=== PATIENT | female | born 1995 | race Hispanic/Latino ===

== ENCOUNTER 2019-09-12 16:14 | Inpatient (IN) | payer BC ==
[~2019-09-12] VITALS: Ht 147.3 cm; Wt 92.5 kg
[2019-09-12 17:09] LABS: BASOPHILS % (AUTO) 0.3 % (0.0-5.0); EOSINOPHILS % (AUTO) 0.3 % (0.0-8.0); MEAN CORPUSCULAR HEMOGLOBIN 29.3 pg (27.0-33.0); MEAN CORPUSCULAR HGB CONC 34.3 g/dL (32.0-36.0); MEAN CORPUSCULAR VOLUME 85.5 fL (79-99); MONOCYTES % (AUTO) 6.1 % (3.0-13.0); NEUTROPHILS % (AUTO) 65.3 % (40.0-77.0); NUCLEATED RED BLOOD CELLS 0.1 % (0.0-0.19); PLATELET COUNT (AUTO) 160 K/uL (130-400); RED CELL DISTRIBUTION WIDTH 13.4 % (11.0-15.5); WHITE BLOOD COUNT (AUTO) 8.5 K/uL (4.8-10.8)
[2019-09-12 17:11] LABS: APPEARANCE,URINE Clear (CLEAR); BILIRUBIN,URINE Negative (NEGATIVE); COLOR,URINE Yellow (YELLOW); GLUCOSE, URINE (UA) Negative (NEGATIVE); KETONES,URINE Negative (NEGATIVE); LEUKOCYTE ESTERASE ,URINE Negative (NEGATIVE); NITRATE,URINE Negative (NEGATIVE); OCCULT BLOOD,URINE Negative (NEGATIVE); PROTEIN,URINE POS 2+ mg/dL (NEGATIVE); UROBILINOGEN,URINE 0.2 mg/dL (0.2-1.0)
[2019-09-12 17:28] LABS: INR 0.87 (0.85-1.15); PROTHROMBIN TIME 9.2 SEC (9.6-11.6)
[2019-09-12 17:29] LABS: CREATININE 0.7 mg/dL (0.5-1.5)
[2019-09-12] MEDS: LACTATED RINGERS 1000ML 1,000 ML IV SCH (17:30)
[2019-09-12 17:32] LABS: ALBUMIN 2.7 g/dL (3.5-5.0); BILIRUBIN,TOTAL 0.2 mg/dL (0.2-1.0); TOTAL PROTEIN, SERUM 6.9 g/dL (6.0-8.3); URIC ACID 6.2 mg/dL (2.6-7.2)
[2019-09-12 18:02] LABS: BACTERIA,URINE Few /HPF (None Seen); MUCUS,URINE Rare LPF (None Seen); RBC,URINE 0-1 /HPF (0-1); SQUAMOUS EPITHELIAL CELL,UR Few /HPF (0-2); WBC,URINE 0-1 /HPF (0-1)
[2019-09-12 18:03] LABS: PARTIAL THROMBOPLASTIN TIME 27.1 SEC (26.3-35.5)
[2019-09-12] MEDS ORDERED: LACTATED RINGERS 1000ML 1,000 ML IV SCH (18:31)
[2019-09-12] MEDS ORDERED: MAGNESIUM SULFATE 1,000 ML IV PRN (18:31)
[2019-09-12] MEDS ORDERED: DINOPROSTONE 10 MG VAGINAL SUPP VG SCH (18:45)
[2019-09-12] MEDS ORDERED: CALCIUM GLUCONATE 1 GM/10 ML VIAL IV PRN (18:45)
[2019-09-12] MEDS ORDERED: MAGNESIUM 4GM PREMIX 100ML 100 ML IV PRN (18:45)
[2019-09-13] MEDS ORDERED: HYDRALAZINE HCL 20 MG/ML VIAL ONE (00:45)
[2019-09-13] MEDS ORDERED: HYDRALAZINE HCL 20 MG/ML VIAL IV ONE (00:45)
[2019-09-13] MEDS: LACTATED RINGERS 1000ML 1,000 ML IV SCH (06:20)
[2019-09-13] MEDS ORDERED: OXYTOCIN-LR 20 UNITS/1000 ML 1,000 ML IV ONE (07:43)
[2019-09-13] MEDS ORDERED: OXYTOCIN 10 USP UNITS/ML 20 UNIT in LACTATED RINGERS 1000ML 1,000 ML IV SCH (07:45)
[2019-09-13] MEDS ORDERED: CEFAZOLIN SODIUM 1 GM VIAL ONE (09:21)
[2019-09-13] MEDS ORDERED: CALDOLOR 800MG+NS 250ML 250 ML IV ONE (09:21)
[2019-09-13] MEDS ORDERED: ONDANSETRON HCL 4 MG/2 ML VIAL ONE ×2 (09:26→12:54)
[2019-09-13] MEDS ORDERED: OXYTOCIN 10 USP UNITS/ML ONE (09:27)
[2019-09-13] MEDS ORDERED: DURAMORPH PF1 MG/ML 10ML AMP IV ONE (09:27)
[2019-09-13] MEDS ORDERED: FENTANYL CITRATE PF 50 MCG/1 ML 2ML VIAL ONE (09:27)
[2019-09-13] MEDS ORDERED: LACTATED RINGERS 1000ML 1,000 ML IV SCH ×2 (09:30→17:41)
[2019-09-13] MEDS ORDERED: CALDOLOR 800MG+NS 250ML 250 ML IV PRN (09:30)
[2019-09-13] MEDS ORDERED: CEFAZOLIN SODIUM 1 GM VIAL IVP PRN (09:30)
[2019-09-13] MEDS ORDERED: CEFAZOLIN SODIUM 1 GM VIAL IVP ONE (09:50)
[2019-09-13] MEDS ORDERED: PHENYLEPHRINE HCL 10 MG/ML 1ML VIAL IV ONE (10:21)
[2019-09-13] MEDS ORDERED: DiphenhydrAMINE HCL 50 MG/ML VIAL ONE (15:43)
[2019-09-13] MEDS ORDERED: MAGNESIUM SULFATE 1,000 ML IV PRN (17:41)
[2019-09-13] MEDS ORDERED: PROMETHAZINE HCL 25 MG/ML 1ML AMPULE IM PRN (17:45)
[2019-09-13] MEDS ORDERED: MAGNESIUM 4GM PREMIX 100ML 100 ML IV PRN (17:45)
[2019-09-13] MEDS ORDERED: OXYTOCIN-LR 20 UNITS/1000 ML 1,000 ML IV PRN (17:45)
[2019-09-13] MEDS ORDERED: MEPERIDINE-PF 75 MG/ML SYG IM PRN (17:45)
[2019-09-13] MEDS ORDERED: CALCIUM GLUCONATE 1 GM/10 ML VIAL IV PRN (17:45)
[2019-09-13] MEDS ORDERED: CALDOLOR 800MG+NS 250ML 250 ML IV SCH (21:30)
[2019-09-14 06:47] LABS: HEMATOCRIT 33.3 % (36-48); MEAN CORPUSCULAR HEMOGLOBIN 29.4 pg (27.0-33.0); MEAN CORPUSCULAR HGB CONC 34.1 g/dL (32.0-36.0); MEAN CORPUSCULAR VOLUME 86.2 fL (79-99); PLATELET COUNT (AUTO) 163 K/uL (130-400); RED BLOOD CELL COUNT(AUTO) 3.87 MIL/uL (4.00-5.50); RED CELL DISTRIBUTION WIDTH 13.1 % (11.0-15.5)
[2019-09-14 08:12] LABS: HEPATITIS Bs ANTIGEN SCREEN P Negative (Negative)
[2019-09-14] MEDS ORDERED: LABETALOL HCL 200 MG TABLET PO SCH (10:15)
[2019-09-14] MEDS ORDERED: IBUPROFEN 600 MG TABLET ONE (17:39)
[2019-09-14] MEDS ORDERED: ACETAMINOPHEN-CODEINE 300/30MG TAB PO PRN (18:30)
[2019-09-14] MEDS ORDERED: BISACODYL 10 MG SUPP.RECT RC PRN (18:30)
[2019-09-14] MEDS ORDERED: HYDROCODONE/ACETAMINOPHEN 5/325 MG TAB PO PRN (18:30)
[2019-09-14] MEDS ORDERED: LANOLIN 30GM OINTMENT TP PRN (18:30)
[2019-09-14] MEDS ORDERED: ACETAMINOPHEN EXTRA STRENGTH 500 MG TABLET PO PRN (18:30)
[2019-09-14] MEDS: DOCUSATE SODIUM 100 MG CAP PO SCH (21:14)
[2019-09-14] MEDS: SIMETHICONE 80 MG TAB.CHEW PO SCH (21:15)
[2019-09-15] MEDS: SIMETHICONE 80 MG TAB.CHEW PO SCH ×4 (13:00→20:09)
--- NOTE | 2019-09-15 15:00 | NUR ---
RECEIVED PATIENT FROM L/D VIA W/C AND PATIENT UP WALKING IN ROOM. DENIES HEADACHE, CHEST PAIN OR BLURRED VISION. DTRs ARE 1+ ARMS AND 2+ LEGS AND NO CLONUS NOTED. BP CONTINUES TO BE ELEVATED AND WAS INFORMED OF LABETALOL CHANGED TO Q8H FROM BID. PATIENT OTHERWISE STABLE.
[2019-09-15 15:09] VITALS: BP 158/104
[2019-09-15] MEDS: DOCUSATE SODIUM 100 MG CAP PO SCH ×2 (15:33→20:09)
[2019-09-15] MEDS: LABETALOL HCL 200 MG TABLET PO SCH ×2 (15:33→23:49)
[2019-09-15 16:36] VITALS: BP 160/99
[2019-09-15] MEDS ORDERED: PREN1TAB80 PO (17:21)
[2019-09-15] MEDS ORDERED: CALC-724 PO (17:21)
[2019-09-15] MEDS ORDERED: MEASLES/MUMPS/RUBELLA VACCINE, LIVE 0.5 ML/VIAL SQ ONE ×2 (17:39→18:55)
--- NOTE | 2019-09-15 18:00 | NUR ---
REPORT GIVEN TO LIVIER EDMONDS AND PATIENT CARE TRANSFERED AT THIS TIME. PATIENT IS STABLE AND WAS MEDICATED AFTER DINNER WITH TYLENOL #3 X 2 TABS FOR PAIN OF 5 ON SCALE OF 0 TO 10 PATIENT WAS ALSO IMMUNIZED WITH MMR TO LEFT UPPER ARM. TOLERATED DIET WELL. ENCOURAGE PATIENT TO WALK AFTER DINNER AND REINFORCED IMPORTANCE OF TAKING SHOWER.
--- NOTE | 2019-09-15 19:20 | NUR ---
PT AMBULATING IN HALLWAY, WELL TOLERATED. DENIED DIZZINESS.
[2019-09-15 19:29] VITALS: BP 143/78
--- NOTE | 2019-09-15 19:37 | NUR ---
BACK IN ROOM, SITTING UP IN CHAIR.
--- NOTE | 2019-09-15 21:00 | NUR ---
PT. AMBULATED IN HALLWAY FOR 15 MINS, WELL TOLERATED.
[2019-09-15 23:47] VITALS: BP 152/97
[2019-09-16 03:52] VITALS: BP 144/96
[2019-09-16 07:23] VITALS: BP 147/83
--- NOTE | 2019-09-16 07:50 | NUR ---
EILEEN BEAR CNM ROUNDED AND DISCHARGED PT TO HOME ON LABETALOL. PATIENT TO FOLLOW UP IN ONE WEEK.
--- NOTE | 2019-09-16 09:00 | NUR ---
PATIENT WAS GIVEN ALL MEDS AND HAS REMAINED STABLE. STATES HAVING A BM ON PREVIOUS DAY AND ABDOMEN IS SOFT.
[2019-09-16] MEDS: SIMETHICONE 80 MG TAB.CHEW PO SCH ×2 (09:12→14:38)
[2019-09-16] MEDS: DOCUSATE SODIUM 100 MG CAP PO SCH (09:13)
[2019-09-16] MEDS: LABETALOL HCL 200 MG TABLET PO SCH ×2 (09:13→15:06)
[2019-09-16] MEDS: IBUPROFEN 600 MG TABLET PO PRN ×2 (09:15→14:39)
[2019-09-16 12:15] VITALS: BP 137/78
--- NOTE | 2019-09-16 12:15 | NUR ---
VITAL SIGNS DONE AND PATIENT WAS GIVEN DISCHARGE INSTRUCTIONS AT THIS TIME. PATIENT DENIES PAIN AND TOLERATING ACTIVITY WELL.
--- NOTE | 2019-09-16 15:15 | NUR ---
PATIENT WAS TAKEN VIA W/C TO [facility]ILY [facility]LE AND WAS DISCHARGED WITH BABY. PATIENT AND BABY STABLE AND DENIES PAIN. WAS GIVEN MOTRIN AND LABETALOL PRIOR TO DISCHARGE SINCE IT WAS DUE AT 1600.
== END 2019-09-16 15:15 | disposition home or self-care (01) | DRG 788 ==
LOC: OBSVTOIN 16:14 → LDH 16:14 → WSH 09-15 15:01
PROVIDERS: ADMIT Obstetrics & Gynecology; ATTEND Obstetrics & Gynecology
PROC: 10D00Z1 Extraction of Products of Conception, Low, Open Approach (ICD-10-PCS; principal; 2019-09-12)
DX: O62.2 Other uterine inertia (principal); Z37.0 Single live birth; O13.4 Gestational [pregnancy-induced] hypertension without significant proteinuria, complicating childbirth
CPT/HCPCS: 36415; 59510; 80053; 81001; 82044; 84550; 85025; 85027; 85384; 85610; 85730; 86592; 86850; 86900; 86901; 87340; 90707; A4314; A4344; G0378; J0360; J0690; J1200; J1741; J2274; J2370; J2405; J2590; J3010; J3475; J7120